=== PATIENT | male | born 1985 | race Two or more races ===

== ENCOUNTER 2019-10-17 12:49 | Inpatient (IN) | payer MEDICAID, SELFPAY ==
[~2019-10-17] VITALS: Ht 170.2 cm; Wt 78.9 kg
[2019-10-17] MEDS ORDERED: AZIT250T12 PO (12:55)
[2019-10-17] MEDS ORDERED: PRED1TAB PO (12:55)
[2019-10-17] MEDS ORDERED: ALBUTEROL 6.7GM HFA INHALER ORI ONE (13:30)
[2019-10-17 13:41] LABS: HEMATOCRIT. 39.1 % (42.0-52.0); HEMOGLOBIN. 13.4 g/dL (14.0-18.0); MEAN CORPUSCULAR HEMOGLOBIN 28.9 pg (28.0-32.0); MEAN CORPUSCULAR VOLUME 84.4 fL (80.0-94.0); MEAN PLATELET VOLUME 7.7 fl (7.4-10.4); PLATELET 461 x1000/uL (130-400); RED BLOOD CELL COUNT 4.63 mill/uL (4.7-6.1)
[2019-10-17 13:48] LABS: CHLORIDE 112 mEq/L (98-107)
[2019-10-17 13:55] LABS: D-DIMER 0.86 mg/L FEU (<0.50); PROTHROMBIN TIME 10.2 sec (9.6-11.0)
[2019-10-17 14:13] LABS: PLATELET ESTIMATE INCREASED
[2019-10-17] MEDS ORDERED: PIPERACILLIN/TAZ 3.375G PREMIX 50 ML IV ONE (14:45)
[2019-10-17 15:02] LABS: CLARITY URINE CLEAR (CLEAR); COLOR URINE YELLOW (YELLOW); KETONES URINE NEGATIVE (NEGATIVE); LEUKOCYTE ESTERASE URINE NEGATIVE (NEGATIVE); NITRITE URINE NEGATIVE (NEGATIVE); OCCULT BLOOD URINE NEGATIVE (NEGATIVE); PROTEIN URINE 1+ (NEGATIVE); SPECIFIC GRAVITY URINE 1.021 (1.005-1.030); UROBILINOGEN URINE 0.2 E.U./dL (0.2-1.0)
[2019-10-17] MEDS ORDERED: GUAIFENESIN 200MG/10ML SUGAR FREE UDC PO PRN (15:45)
[2019-10-17] MEDS ORDERED: ACETAMINOPHEN 325MG TABLET PO PRN (15:45)
[2019-10-17] MEDS ORDERED: DOCUSATE SODIUM 100MG CAPSULE PO PRN (15:45)
[2019-10-17] MEDS ORDERED: NITROGLYCERIN 0.4MG TABLET SL SL PRN (15:45)
[2019-10-17] MEDS ORDERED: LORAZEPAM 0.5MG TABLET PO PRN (15:45)
[2019-10-17] MEDS ORDERED: MAGNESIUM/ALUMINUM HYDROXIDE/SIMETHICONE 30ML UDC PO PRN (15:45)
[2019-10-17] MEDS ORDERED: CLONIDINE 0.1MG TABLET PO PRN (15:45)
[2019-10-17] MEDS ORDERED: KETOROLAC 15MG/ML VIAL IV PRN (15:45)
[2019-10-17] MEDS ORDERED: NA PHOS,M-B/NA PHOS,DI-BA ENEMA 118ML PR PRN (15:45)
[2019-10-17] MEDS: GUAIFENESIN/DM 600MG/30MG ER TAB 12HR PO SCH ×2 (16:36→23:48)
[2019-10-17] MEDS ORDERED: AZITHROMYCIN 500 MG in DEXT 5% WATER 250 ML IV SCH (17:00)
[2019-10-17] MEDS ORDERED: ENOXAPARIN 40MG/0.4ML SYR SUBCUT SCH (17:00)
[2019-10-17] MEDS ORDERED: CEFTRIAXONE 1 G PREMIX 50 ML IV SCH (17:00)
[2019-10-17] MEDS ORDERED: ALBUTEROL 6.7GM HFA INHALER ORI PRN (19:15)
[2019-10-17] MEDS: FAMOTIDINE 20MG TABLET PO SCH (21:48)
[2019-10-17] MEDS: ASCORBIC ACID 500 MG TABLET PO SCH (21:48)
[2019-10-17 23:30] VITALS: BP_SYST 101; BP_SYST 120; BP_DIAS 54; BP_DIAS 66
[2019-10-18 00:27] LABS: CREATINE KINASE 82 IU/L (39-308)
[2019-10-18 00:28] LABS: CREATINE KINASE MB FRACTION < 1.0 ng/mL (0.5-3.6)
[2019-10-18 04:00] VITALS: BP 99/63
[2019-10-18 04:43] LABS: *AMPHETAMINES SCREEN URINE NEGATIVE (NEGATIVE); *BARBITURATES SCREEN URINE NEGATIVE (NEGATIVE); *BENZODIAZEPINES SCREEN URINE NEGATIVE (NEGATIVE); *COCAINE SCREEN URINE NEGATIVE (NEGATIVE)
[2019-10-18 04:45] LABS: CANNABINOID URINE SCREEN NEGATIVE (NEGATIVE); METHADONE URINE SCREEN NEGATIVE (NEGATIVE); OPIATES URINE SCREEN NEGATIVE (NEGATIVE); PHENCYCLIDINE URINE SCREEN NEGATIVE (NEGATIVE)
[2019-10-18 06:47] LABS: CREATINE KINASE 82 IU/L (39-308)
[2019-10-18 06:48] LABS: CREATINE KINASE MB FRACTION < 1.0 ng/mL (0.5-3.6)
[2019-10-18] MEDS: ASCORBIC ACID 500 MG TABLET PO SCH ×2 (07:43→20:51)
[2019-10-18] MEDS: GUAIFENESIN/DM 600MG/30MG ER TAB 12HR PO SCH ×2 (07:43→20:51)
[2019-10-18] MEDS: FAMOTIDINE 20MG TABLET PO SCH ×2 (07:44→20:51)
[2019-10-18] MEDS: ZINC SULFATE 220 MG ( 50 ) CAPSULE PO SCH (07:44)
[2019-10-18 07:53] VITALS: BP 104/75
[2019-10-18] MEDS: ONDANSETRON HCL 4MG/2ML INJ IV PRN (08:35)
[2019-10-18 12:00] VITALS: BP 116/72
[2019-10-18] MEDS: METHYLPREDNISOLONE SOD SUCC 40 MG/ML VIAL IV SCH ×2 (12:35→20:52)
[2019-10-18] MEDS: ENOXAPARIN 80MG/0.8ML SYR SUBCUT SCH ×2 (12:36→20:52)
[2019-10-18] MEDS: ALBUTEROL 6.7GM HFA INHALER ORI SCH ×3 (12:36→23:55)
[2019-10-18 16:00] VITALS: BP 100/68
[2019-10-18] MEDS: CEFTRIAXONE 1,000 MG in DEXTROSE 5% WATER 50 ML IV SCH (16:32)
[2019-10-18] MEDS: AZITHROMYCIN 500 MG in DEXT 5% WATER 250 ML IV SCH (17:17)
[2019-10-18 20:00] VITALS: BP 98/57
[2019-10-18] MEDS: ZOLPIDEM TARTRATE 5MG TABLET PO PRN (20:52)
[2019-10-18] MEDS: ACETAMINOPHEN 325MG TABLET PO PRN (21:05)
[2019-10-19] VITALS: BP 103/67
[2019-10-19 04:00] VITALS: BP 113/72
[2019-10-19] MEDS: METHYLPREDNISOLONE SOD SUCC 40 MG/ML VIAL IV SCH (05:15)
[2019-10-19] MEDS: ALBUTEROL 6.7GM HFA INHALER ORI SCH ×3 (05:15→17:36)
[2019-10-19 08:00] VITALS: BP 106/70
[2019-10-19] MEDS: GUAIFENESIN/DM 600MG/30MG ER TAB 12HR PO SCH ×2 (08:18→21:02)
[2019-10-19] MEDS: ZINC SULFATE 220 MG ( 50 ) CAPSULE PO SCH (08:18)
[2019-10-19] MEDS: ENOXAPARIN 80MG/0.8ML SYR SUBCUT SCH ×2 (08:18→21:02)
[2019-10-19] MEDS: ASCORBIC ACID 500 MG TABLET PO SCH ×2 (08:18→21:02)
[2019-10-19] MEDS: FAMOTIDINE 20MG TABLET PO SCH ×2 (08:18→21:02)
[2019-10-19] MEDS: ONDANSETRON HCL 4MG/2ML INJ IV PRN (11:25)
[2019-10-19 12:00] VITALS: BP 108/66
[2019-10-19 16:00] VITALS: BP 103/68
[2019-10-19] MEDS: CEFTRIAXONE 1,000 MG in DEXTROSE 5% WATER 50 ML IV SCH (16:47)
[2019-10-19] MEDS: DEXAMETHASONE 10 MG/ML VIAL IV SCH (16:47)
[2019-10-19] MEDS ORDERED: REMDESIVIR 200 MG in SODIUM CHLORIDE 0.9% 250 ML IV NR (17:30)
[2019-10-19] MEDS: AZITHROMYCIN 500 MG in DEXT 5% WATER 250 ML IV SCH (17:36)
[2019-10-19 20:00] VITALS: BP 96/56
[2019-10-20] VITALS: BP 101/65
[2019-10-20] MEDS: ZOLPIDEM TARTRATE 5MG TABLET PO PRN ×2 (00:31→22:18)
[2019-10-20] MEDS: ALBUTEROL 6.7GM HFA INHALER ORI SCH ×4 (00:31→17:20)
[2019-10-20 04:00] VITALS: BP 97/58
[2019-10-20 08:00] VITALS: BP 101/65
[2019-10-20 08:41] LABS: BASOPHILS % 0.6 % (0.0-2.0); HEMATOCRIT. 37.9 % (42.0-52.0); HEMOGLOBIN. 12.8 g/dL (14.0-18.0); LYMPHOCYTES % 12.5 % (20.0-50.0); MEAN CORPUSCULAR HEMOGLOBIN 28.4 pg (28.0-32.0); MEAN CORPUSCULAR VOLUME 84.1 fL (80.0-94.0); MEAN PLATELET VOLUME 7.4 fl (7.4-10.4); MONOCYTES % 6.9 % (2.0-8.0); PLATELET 616 x1000/uL (130-400); RED CELL DISTRIBUTION WIDTH 13.7 % (11.6-14.6)
[2019-10-20] MEDS: FAMOTIDINE 20MG TABLET PO SCH ×3 (08:49→20:50)
[2019-10-20] MEDS: GUAIFENESIN/DM 600MG/30MG ER TAB 12HR PO SCH ×2 (08:49→20:50)
[2019-10-20] MEDS: ZINC SULFATE 220 MG ( 50 ) CAPSULE PO SCH (08:49)
[2019-10-20] MEDS: DEXAMETHASONE 10 MG/ML VIAL IV SCH (08:49)
[2019-10-20] MEDS: ENOXAPARIN 80MG/0.8ML SYR SUBCUT SCH ×2 (08:49→20:51)
[2019-10-20] MEDS: ASCORBIC ACID 500 MG TABLET PO SCH ×2 (08:49→20:50)
[2019-10-20 09:32] LABS: CHLORIDE 108 mEq/L (98-107)
[2019-10-20 12:00] VITALS: BP 105/67
[2019-10-20 16:00] VITALS: BP 94/54
[2019-10-20] MEDS: CEFTRIAXONE 1,000 MG in DEXTROSE 5% WATER 50 ML IV SCH (16:05)
[2019-10-20] MEDS: AZITHROMYCIN 500 MG in DEXT 5% WATER 250 ML IV SCH (16:30)
[2019-10-20] MEDS: REMDESIVIR 100 MG in SODIUM CHLORIDE 0.9% 250 ML IV SCH (16:59)
[2019-10-20 20:00] VITALS: BP 96/55
[2019-10-21] VITALS: BP 109/61
[2019-10-21] MEDS: ALBUTEROL 6.7GM HFA INHALER ORI SCH ×5 (00:03→23:13)
[2019-10-21 04:00] VITALS: BP 94/61
[2019-10-21 08:00] VITALS: BP 99/63
[2019-10-21] MEDS: GUAIFENESIN/DM 600MG/30MG ER TAB 12HR PO SCH ×2 (08:28→21:09)
[2019-10-21] MEDS: FAMOTIDINE 20MG TABLET PO SCH ×2 (08:28→21:09)
[2019-10-21] MEDS: ZINC SULFATE 220 MG ( 50 ) CAPSULE PO SCH (08:28)
[2019-10-21] MEDS: ENOXAPARIN 80MG/0.8ML SYR SUBCUT SCH ×2 (08:29→21:10)
[2019-10-21] MEDS: ASCORBIC ACID 500 MG TABLET PO SCH ×2 (08:29→21:09)
[2019-10-21] MEDS: DEXAMETHASONE 10 MG/ML VIAL IV SCH (08:29)
[2019-10-21 12:00] VITALS: BP 96/58
[2019-10-21 16:00] VITALS: BP 105/61
[2019-10-21] MEDS: CEFTRIAXONE 1,000 MG in DEXTROSE 5% WATER 50 ML IV SCH (16:05)
[2019-10-21] MEDS: AZITHROMYCIN 500 MG in DEXT 5% WATER 250 ML IV SCH (16:22)
[2019-10-21] MEDS: REMDESIVIR 100 MG in SODIUM CHLORIDE 0.9% 250 ML IV SCH (17:03)
[2019-10-21 20:00] VITALS: BP 106/72
[2019-10-21] MEDS: ZOLPIDEM TARTRATE 5MG TABLET PO PRN (21:19)
[2019-10-22 00:50] VITALS: BP 98/68
[2019-10-22 04:00] VITALS: BP 99/66
[2019-10-22] MEDS: ALBUTEROL 6.7GM HFA INHALER ORI SCH ×3 (05:37→17:16)
[2019-10-22] MEDS: ENOXAPARIN 80MG/0.8ML SYR SUBCUT SCH ×2 (08:21→20:33)
[2019-10-22] MEDS: FAMOTIDINE 20MG TABLET PO SCH ×2 (08:21→20:32)
[2019-10-22] MEDS: ASCORBIC ACID 500 MG TABLET PO SCH ×2 (08:21→20:32)
[2019-10-22] MEDS: GUAIFENESIN/DM 600MG/30MG ER TAB 12HR PO SCH ×2 (08:21→20:32)
[2019-10-22] MEDS: ZINC SULFATE 220 MG ( 50 ) CAPSULE PO SCH (08:21)
[2019-10-22] MEDS: DEXAMETHASONE 10 MG/ML VIAL IV SCH (08:21)
[2019-10-22 08:30] VITALS: BP 102/63
[2019-10-22 09:32] LABS: BG BASE EXCESS 0.2 mmol/L (-2.0-2.0); BG CARBOXYHEMOGLOBIN 1.2 % (0.5-1.5); BG DEOXYHEMOGLOBIN 4.8 % (0.0-5.0); BG FRACTION INSPIRED OXYGEN 28; BG HCO3 ACT 23.5 mmol/L (22.0-26.0); BG METHEMOGLOBIN 0.2 % (0.0-1.5); BG OXYGEN SATURATION 95.1 % (92.0-98.5); BG OXYHEMOGLOBIN 93.8 % (94.0-97.0); BG PCO2 34.2 mmHg (35.0-45.0); BG PH 7.454 (7.350-7.450); BG PO2 73.7 mmHg (75.0-100.0); BG SAMPLE SITE RIGHT BRACHIAL; BG TOTAL HEMOGLOBIN 14.9 g/dL (12.0-18.0); BG VENT MODE NASAL CANNULA
[2019-10-22 12:00] VITALS: BP 92/49
[2019-10-22 16:00] VITALS: BP 106/55
[2019-10-22] MEDS: REMDESIVIR 100 MG in SODIUM CHLORIDE 0.9% 250 ML IV SCH (16:00)
[2019-10-22] MEDS: CEFTRIAXONE 1,000 MG in DEXTROSE 5% WATER 50 ML IV SCH (16:30)
[2019-10-22] MEDS: AZITHROMYCIN 500 MG in DEXT 5% WATER 250 ML IV SCH (17:11)
[2019-10-22 20:53] VITALS: BP 92/60
[2019-10-23] VITALS: BP 90/58
[2019-10-23] MEDS: ACETAMINOPHEN 325MG TABLET PO PRN (01:12)
[2019-10-23 04:00] VITALS: BP 92/60
[2019-10-23] MEDS: ALBUTEROL 6.7GM HFA INHALER ORI SCH ×4 (05:05→17:38)
[2019-10-23] MEDS: GUAIFENESIN/DM 600MG/30MG ER TAB 12HR PO SCH ×2 (08:29→20:36)
[2019-10-23] MEDS: DEXAMETHASONE 10 MG/ML VIAL IV SCH (08:29)
[2019-10-23] MEDS: ZINC SULFATE 220 MG ( 50 ) CAPSULE PO SCH (08:29)
[2019-10-23] MEDS: ASCORBIC ACID 500 MG TABLET PO SCH ×2 (08:29→20:36)
[2019-10-23] MEDS: FAMOTIDINE 20MG TABLET PO SCH ×2 (08:29→21:43)
[2019-10-23 08:30] VITALS: BP 99/56
[2019-10-23] MEDS: ENOXAPARIN 80MG/0.8ML SYR SUBCUT SCH ×2 (08:30→20:36)
[2019-10-23 12:30] VITALS: BP 100/50
[2019-10-23 16:00] VITALS: BP 100/61
[2019-10-23] MEDS: REMDESIVIR 100 MG in SODIUM CHLORIDE 0.9% 250 ML IV SCH (16:02)
[2019-10-23 20:45] VITALS: BP 95/58
[2019-10-23 21:17] LABS: CHLORIDE 105 mEq/L (98-107)
[2019-10-24] VITALS: BP 102/60
[2019-10-24] MEDS: ALBUTEROL 6.7GM HFA INHALER ORI SCH ×4 (00:15→18:00)
[2019-10-24 04:00] VITALS: BP 98/62
[2019-10-24 07:30] LABS: CHLORIDE 106 mEq/L (98-107)
[2019-10-24 08:00] VITALS: BP 99/65
[2019-10-24] MEDS: ZINC SULFATE 220 MG ( 50 ) CAPSULE PO SCH (09:10)
[2019-10-24] MEDS: DEXAMETHASONE 10 MG/ML VIAL IV SCH (09:11)
[2019-10-24] MEDS: ASCORBIC ACID 500 MG TABLET PO SCH ×2 (09:11→19:52)
[2019-10-24] MEDS: GUAIFENESIN/DM 600MG/30MG ER TAB 12HR PO SCH ×2 (09:11→19:52)
[2019-10-24] MEDS: ENOXAPARIN 80MG/0.8ML SYR SUBCUT SCH ×2 (09:11→19:52)
[2019-10-24] MEDS: FAMOTIDINE 20MG TABLET PO SCH ×2 (09:11→19:52)
[2019-10-24 12:00] VITALS: BP 102/62
[2019-10-24 16:00] VITALS: BP 100/61
[2019-10-24 17:41] LABS: BG BASE EXCESS -2.2 mmol/L (-2.0-2.0); BG CARBOXYHEMOGLOBIN 0.7 % (0.5-1.5); BG DEOXYHEMOGLOBIN 3.5 % (0.0-5.0); BG FRACTION INSPIRED OXYGEN 21; BG METHEMOGLOBIN 0.4 % (0.0-1.5); BG OXYGEN SATURATION 96.5 % (92.0-98.5); BG OXYHEMOGLOBIN 95.4 % (94.0-97.0); BG PH 7.434 (7.350-7.450); BG PO2 81.8 mmHg (75.0-100.0); BG SAMPLE SITE RIGHT RADIAL; BG TOTAL HEMOGLOBIN 15.7 g/dL (12.0-18.0); BG VENT MODE ROOM AIR
[2019-10-24 20:00] VITALS: BP 98/63
[2019-10-25] MEDS: ALBUTEROL 6.7GM HFA INHALER ORI SCH ×2 (00:13→04:33)
[2019-10-25 00:14] VITALS: BP 92/50
[2019-10-25 05:21] VITALS: BP 95/58
[2019-10-25 06:30] LABS: CHLORIDE 104 mEq/L (98-107)
[2019-10-25 08:00] VITALS: BP_SYST 56
[2019-10-25] MEDS: FAMOTIDINE 20MG TABLET PO SCH (08:42)
[2019-10-25] MEDS: ZINC SULFATE 220 MG ( 50 ) CAPSULE PO SCH (08:42)
[2019-10-25] MEDS: ENOXAPARIN 80MG/0.8ML SYR SUBCUT SCH (08:42)
[2019-10-25] MEDS: ASCORBIC ACID 500 MG TABLET PO SCH (08:42)
[2019-10-25] MEDS: GUAIFENESIN/DM 600MG/30MG ER TAB 12HR PO SCH (08:42)
[2019-10-25] MEDS ORDERED: DEXAMETHASONE 4MG TABLET PO SCH (09:00)
[2019-10-25 12:00] VITALS: BP 94/59
[2019-10-25 16:00] VITALS: BP 88/59
[2019-10-25] MEDS ORDERED: DEX6 MT (18:42)
[2019-10-25] MEDS ORDERED: PANT40SU PO (18:43)
[2019-10-25] MEDS ORDERED: ZINC220T4 MT (18:44)
[2019-10-25] MEDS ORDERED: ASCO-339 MT (18:44)
[2019-10-25 18:49] VITALS: BP 104/54
== END 2019-10-25 19:21 | disposition home or self-care (01) | DRG 720 ==
LOC: ER 12:49 → 7WST 15:18 → EDBEDREQ 15:22 → EDBEDREQTM 15:22 → ENRESERV 22:11
PROVIDERS: ADMIT Internal Medicine; ATTEND Internal Medicine
PROC: XW033E5 Introduction of Remdesivir Anti-infective into Peripheral Vein, Percutaneous Approach, New Technology Group 5 (ICD-10-PCS; principal; 2019-10-19)
PROC: XW033E5 Introduction of Remdesivir Anti-infective into Peripheral Vein, Percutaneous Approach, New Technology Group 5 (ICD-10-PCS; 2019-10-20)
PROC: XW033E5 Introduction of Remdesivir Anti-infective into Peripheral Vein, Percutaneous Approach, New Technology Group 5 (ICD-10-PCS; 2019-10-21)
PROC: XW033E5 Introduction of Remdesivir Anti-infective into Peripheral Vein, Percutaneous Approach, New Technology Group 5 (ICD-10-PCS; 2019-10-23)
DX: A41.51 Sepsis due to Escherichia coli [E. coli] (principal); U07.1 COVID-19; J96.01 Acute respiratory failure with hypoxia; J12.89 Other viral pneumonia; E44.1 Mild protein-calorie malnutrition; B96.89 Other specified bacterial agents as the cause of diseases classified elsewhere; N39.0 Urinary tract infection, site not specified; B97.89 Other viral agents as the cause of diseases classified elsewhere; D68.59 Other primary thrombophilia; Z16.12 Extended spectrum beta lactamase (ESBL) resistance; Z79.899 Other long term (current) drug therapy; Z68.27 Body mass index [BMI] 27.0-27.9, adult
CPT/HCPCS: 36415; 36600; 71045; 80048; 80053; 80061; 80305; 81003; 82375; 82550; 82553; 82728; 82805; 83036; 83605; 83880; 84145; 84484; 85025; 85379; 85384; 86850; 86900; 87077; 87186; 87635; 93005; 93970; 94640; 99291; J0456; J0696; J1100; J1650; J1885; J2405; J2543; J2920; J7050; J7060; J8540; Q9957